=== PATIENT | male | born 1975 | race Caucasian/White ===

== ENCOUNTER 2021-08-05 16:01 | Observation (INO) ==
[2021-08-05 17:09] LABS: Albumin 4.6 g/dL (3.5-5.7); Albumin/Globulin Ratio 1.7 (1.1-2.2); Bilirubin,Direct 0.2 mg/dL (0.0-0.2); Bilirubin,Indirect 0.5 mg/dL (0.0-1.0); Bilirubin,Total 0.7 mg/dL (0.3-1.0); Calcium 9.2 mg/dL (8.6-10.3); Globulin 2.7 g/dL (2.4-3.5); Potassium 3.8 mEq/L (3.5-5.1); Total Protein 7.3 g/dL (6.4-8.9)
[2021-08-05] MEDS ORDERED: Ondansetron 4 MG/2 ML VIAL IVP ONE (17:12)
[2021-08-05] MEDS ORDERED: *HR* FentaNYL (PF) 100 MCG/2 ML VIAL IVP ONE (17:12)
[2021-08-05 17:31] LABS: Basophils % 0.2 %; Eosinophils % 0.3 %; Hematocrit 48.5 % (37.5-50.1); Hemoglobin 16.8 g/dL (12.9-16.9); Immature Granulocytes % 0.3 % (0-4); Lymphocytes # 1.1 K/mcL (0.6-4.6); Lymphocytes % 8.8 %; Mean Corpuscular HGB Conc 34.6 g/dL (31.6-35.5); Mean Corpuscular Hemoglobin 29.6 pg (28.0-33.3); Mean Corpuscular Volume 85.5 fL (83.0-100.0); Mean Platelet Volume 9.2 fL (9.4-12.4); Monocytes # 0.8 K/mcL (0.0-1.3); Neutrophils # 10.6 K/mcL (1.6-8.9); Platelet Count 266 K/mcL (140-400); Red Blood Count 5.67 M/mcL (4.19-5.50); Red Cell Distribution Width 13.4 % (11.5-14.5); Segmented Neutrophils % 84.4 %; White Blood Count 12.6 K/mcL (4.3-11.1)
[2021-08-05 18:18] LABS: Bacteria,Urine Few per hpf (None-Few); Bilirubin,Urine Negative (Negative); Blood,Urine Large (Negative); Clarity,Urine Ex.Turbid (Clear); Color,Urine Light-Orange (Yellow); Glucose,Urine (UA) 70 mg/dL (Normal); Ketones,Urine Trace mg/dL (Negative); Leukocyte Esterase,Urine Trace (Negative); Mucus,Urine Many per lpf (None-Few); Nitrite,Urine Negative (Negative); PH,Urine 5.5 pH Units (5.0-8.0); Protein,Urine 200 mg/dL (Neg-Trace); RBC,Urine TNTC per hpf (0-3); Specific Gravity,Urine > 1.030 (1.010-1.025); Squamous Epithelial Cell,Urine Moderate per hpf (None-Few); Urobilinogen,Urine Normal (Normal)
[2021-08-05] MEDS ORDERED: Famotidine 20 MG/2 ML VIAL IVP ONE (18:21)
[2021-08-05] MEDS ORDERED: 0.9 % Sodium Chloride 1,000 ML IVC ONE (18:45)
[2021-08-05] MEDS ORDERED: Ondansetron 4 MG/2 ML VIAL IVP PRN (20:01)
[2021-08-05] MEDS ORDERED: Naloxone 0.4 MG/ML INJ IVP PRN (20:01)
[2021-08-05] MEDS: cefTRIAXone 1,000 MG in 0.9 % Sodium Chloride Mini Bag 100 ML IVPB SCH (22:07)
[2021-08-05] MEDS: 0.9 % Sodium Chloride 1,000 ML IVC SCH (22:11)
[2021-08-05] MEDS ORDERED: Morphine Sulfate 2 MG/ML SYRINGE IVP PRN (22:24)
[2021-08-06] MEDS ORDERED: *HR* HYDROmorphone 2 MG/ML SYRINGE IVP PRN (02:08)
[2021-08-06] MEDS ORDERED: Ketorolac 30 MG/ML VIAL IVP ONE (03:28)
[2021-08-06] MEDS: 0.9 % Sodium Chloride 1,000 ML IVC SCH (04:50)
[2021-08-06 05:27] LABS: Basophils % 0.3 %; Eosinophils % 0.3 %; Hematocrit 45.4 % (37.5-50.1); Hemoglobin 15.3 g/dL (12.9-16.9); Immature Granulocytes % 0.4 % (0-4); Mean Corpuscular HGB Conc 33.7 g/dL (31.6-35.5); Mean Corpuscular Hemoglobin 28.9 pg (28.0-33.3); Mean Corpuscular Volume 85.8 fL (83.0-100.0); Monocytes # 0.9 K/mcL (0.0-1.3); Monocytes % 7.8 %; Platelet Count 231 K/mcL (140-400); Red Blood Count 5.29 M/mcL (4.19-5.50); Red Cell Distribution Width 13.4 % (11.5-14.5); Segmented Neutrophils % 83.2 %
[2021-08-06 05:36] LABS: INR 1.1; Prothrombin Time 12.7 Seconds (9.4-12.1)
[2021-08-06 05:48] LABS: Calcium 8.3 mg/dL (8.6-10.3); Magnesium 1.8 mg/dL (1.6-2.6); Potassium 3.7 mEq/L (3.5-5.1)
[2021-08-06 05:57] LABS: Thyroid Stimulating Hormone 4.314 mcIU/mL (0.340-5.600)
[2021-08-06] MEDS ORDERED: *HR* FentaNYL (PF) 100 MCG/2 ML VIAL ONE (07:55)
[2021-08-06] MEDS ORDERED: *HR* Midazolam HCl 2 MG/2 ML VIAL ONE (07:55)
[2021-08-06] MEDS ORDERED: *HR* Propofol 200 MG/20 ML VIAL IVP ONE (07:56)
[2021-08-06] MEDS ORDERED: Ondansetron 4 MG/2 ML VIAL ONE (07:57)
[2021-08-06] MEDS ORDERED: Lidocaine -MPF 2% 5 ML VIAL ONE (07:57)
[2021-08-06] MEDS ORDERED: *HR* HYDROmorphone PF 0.5 MG/0.5 ML SYRINGE IVP PRN (08:10)
[2021-08-06] MEDS ORDERED: Ondansetron 4 MG/2 ML VIAL IVP PRN ×2 (08:10→10:09)
[2021-08-06] MEDS ORDERED: Promethazine 6.25 MG in Water for inj. (sterile) 20 ML IVPB PRN (08:10)
[2021-08-06] MEDS ORDERED: *HR* OxyCODONE Immed Rel 5 MG TABLET PO PRN (08:10)
[2021-08-06] MEDS ORDERED: *HR* Succinylcholine 200 MG/10 ML VIAL IVP ONE (08:41)
[2021-08-06] MEDS ORDERED: Lidocaine HCL 4 ML Topical Solution (Laryng-O-Jet Kit Sterile Pak) TP ONE (08:41)
[2021-08-06] MEDS ORDERED: Isovue-300 50ML VIAL ONE (08:50)
[2021-08-06] MEDS ORDERED: Ketorolac 30 MG/ML VIAL IVP PRN (09:00)
[2021-08-06] MEDS ORDERED: *HR* Rocuronium Bromide 50 MG/5 ML VIAL ONE (09:11)
[2021-08-06 10:00] VITALS: PULSE 74; TEMP 98.5
[2021-08-06] MEDS ORDERED: Naloxone 0.4 MG/ML INJ IVP PRN (10:09)
[2021-08-06] MEDS ORDERED: *HR* Belladonna Alkaloids/Opium 30 MG RECTAL SUPPOSITORY RC PRN (10:09)
[2021-08-06] MEDS ORDERED: 0.9 % Sodium Chloride 1,000 ML IVC SCH (10:09)
[2021-08-06] MEDS: cefTRIAXone 1,000 MG in 0.9 % Sodium Chloride Mini Bag 100 ML IVPB SCH (10:18)
[2021-08-06 11:47] VITALS: BP 146/80; O2SAT 96
[2021-08-06 12:38] LABS: Estimated Average Glucose 140 mg/dl; Hemoglobin A1C 6.5 %
[2021-08-07] MEDS ORDERED: cefTRIAXone 1,000 MG in 0.9 % Sodium Chloride Mini Bag 100 ML IVPB SCH (09:00)
[2021-08-11 14:21] LABS: Calculi Mass 33 mg
== END 2021-08-06 13:06 | disposition home or self-care (01) ==
LOC: 3BNU 16:01 → EMEROOARM 16:01 → 3BNU 21:27
PROVIDERS: ADMIT Student in an Organized Health Care Education/Training Program; ATTEND Student in an Organized Health Care Education/Training Program